=== PATIENT | male | born 1970 | race Caucasian/White ===

== ENCOUNTER 2016-11-02 19:21 | Inpatient (IN) | payer OTHER ==
--- NOTE | ~2016-11-02 | CO ---
Unit #: [id number] #: [id number] Patient: NIKKI UMAÑA [id number] [address] [address] [id number] I MR#: [id number] NAME: NIKKI UMAÑA. ROOM: 225 Age: 46 Sex: M Admission Date: 11/02/2016 : 1970 Attending Physician: Irene Cruz M.D. Primary Care Physician: No Primary Care Physician Consultation Date: 11/03/2016 CONSULTATION REPORT HISTORY AND EXAM Mr. Umaña is a 46-year-old gentleman who fell and hit his right barboza anteriorly on his truck bed causing an open wound. He since has developed worsening cellulitis and pain and reports purulent drainage. On admission in the emergency room, he was noted to have a necrotic eschar over the center and fluctuance. It is exquisitely tender. PAST MEDICAL HISTORY 1. Hypertension. 2. COPD. 3. Ruptured appendicitis with peritonitis requiring exploratory laparotomy. 4. Previous hernia repair. 5. Scar revision. ALLERGIES No allergy to medication. MEDICATIONS Not currently on any medications. FAMILY HISTORY Atherosclerotic coronary artery disease. SOCIAL HISTORY The patient lives with family. He is a pack a day smoker, social alcohol drinker. REVIEW OF SYSTEMS Otherwise noncontributory. CURRENT EXAMINATION GENERAL: He is awake, alert and oriented. VITAL SIGNS: Temperature is 99.7, pulse 79, respirations 14, blood pressure 125/64. HEENT: Unremarkable. CARDIAC: Regular rhythm. LUNGS: Clear. ABDOMEN: Soft. EXTREMITIES: No edema. On the right lower extremity anteriorly he has about a 6 cm necrotic eschar with surrounding fluctuant cellulitis. NEUROLOGICAL: Grossly intact. DIAGNOSTIC STUDIES Unit #: [id number] #: [id number] Patient: NIKKI UMAÑA LABORATORY: Basic metabolic panel shows a potassium of 3.3, otherwise unremarkable. Liver chemistries are normal. INR is 1.1. White count 11,900, hemoglobin 13.1, platelets 151,000. IMAGING: X-ray of the right lower extremity shows no fracture or bony destruction. ASSESSMENT AND PLAN Traumatic wound, right lower extremity, with central eschar and nonviable tissue associated with cellulitis and reports of purulent drainage. This will need operative debridement. I have discussed this with the patient. He understands and agrees to proceed. Dictated by... Maxime Covington/himanshu TD: 11/03/2016 07:19 JOB #: [id number] CONSULTATION REPORT Page 1 of 1 X Terrell Mosley MD X CONSULTATION REPORT
--- NOTE | ~2016-11-02 | HP ---
Unit #: [id number] #: [id number] Patient: NIKKI UMAÑA [id number] [address] [address] [id number] I MR#: [id number] NAME: NIKKI UMAÑA. ROOM: 34973 Age: 46 Sex: M Admission Date: 11/02/2016 : 1970 Attending Physician: Irene Cruz M.D. Primary Care Physician: No Primary Care Physician HISTORY AND PHYSICAL CHIEF COMPLAINT Distal right leg wound with cellulitis. HISTORY This dipak 46-year-old male with COPD, is admitted for cellulitis of the right leg. Five days ago the patient fell and gashed his leg in his truck. Two days ago he developed redness, pain around the right distal leg wound with fevers. He presents to this emergency department with cellulitis over a wound, right leg. There is some purulence noted and some necrotic tissue also present. No crepitus. In the ER he was given morphine and vancomycin along with a liter of saline. He believes that he had a tetanus booster over the past year. PAST MEDICAL HISTORY 1. Hypertension 2. COPD. 3. Ruptured appendix and peritonitis requiring exploratory lap and extensive surgery including partial bowel resection. 4. Hernia repair. 5. Scar revision. ALLERGIES None. HOME MEDICATIONS None. FAMILY HISTORY CAD. SOCIAL HISTORY The patient is living with his grandmother. He smokes one pack per day of tobacco, drinks occasional alcohol. 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 REVIEW OF SYSTEMS Review of systems is notable for COPD, tobacco use, right leg wound with pain, swelling, redness, and low-grade fevers, abovementioned surgeries. All other systems were reviewed and are otherwise negative. PHYSICAL EXAMINATION Unit #: [id number] #: [id number] Patient: NIKKI UMAÑA GENERAL: Dipak 46-year-old male currently in no acute distress. VITAL SIGNS: Temperature 99.8. Pulse 112. Respirations 16. Blood pressure 111/61. O2 saturation 100% on room air. HEENT: Eyes PERRLA. Extraocular muscles are intact. Pharynx is benign. NECK: Supple, without adenopathy or thyromegaly. CHEST: Clear. CARDIAC: Normal S1 and S2, without S3, S4 or murmur. ABDOMEN: Bowel sounds are present. No hepatosplenomegaly, tenderness or masses. Well-healed scar is noted. EXTREMITIES: Notable for a large area of cellulitis over the right lateral barboza with a wound which has some purulence along with necrotic tissue. There is no crepitus present. Pedal pulses are present. NEUROLOGIC EXAM: Patient is awake, alert, oriented. Cranial nerves are intact. Equal strength throughout. DIAGNOSTIC STUDIES ADMISSION LABORATORY: Hematocrit is 42, white blood count is 12.6, normal platelet count. Coags normal. SMA-12: Glucose 122, sodium 132, potassium 3.1. Lactic acid normal. ASSESSMENT 1. Right distal leg wound with cellulitis. There is also some purulence and necrotic tissue. 2. Chronic obstructive pulmonary disease with ongoing tobacco abuse. 3. Hypokalemia. PLANS 1. Vancomycin and Zosyn pending a culture of the wound. Will ask the surgeons to see in consultation for possible debridement if necessary. 2. Bactroban ointment and dressing changes. 3. DVT prophylaxis. 4. Replace potassium, check magnesium. 5. NicoDerm patch. Dictated by Irene Cruz M.D. AML/cf TD: 11/02/2016 21:58 JOB #: [id number] HISTORY AND PHYSICAL Page 1 of 1 X Irene Cruz MD HISTORY AND PHYSICAL
--- NOTE | ~2016-11-02 | OR ---
Unit #: [id number] #: [id number] Patient: NIKKI UMAÑA [id number] [address] [place], [place] [address] [id number] Ulices MR#: [id number] NAME: NIKKI UMAÑA. ROOM: 225 Date of Procedure: 11/03/2016 Admission Date: 11/02/2016 Surgeon: Terrell Mosley M.D. : 1970 Attending Physician: Kya Peace M.D. OPERATIVE REPORT PREOPERATIVE DIAGNOSES Infected traumatic wound, right lower extremity with palpable fluctuance and central necrosis. POSTOPERATIVE DIAGNOSES Infected traumatic wound, right lower extremity with palpable fluctuance and central necrosis. PROCEDURE PERFORMED Sharp incision, drainage, and debridement of skin and subcutaneous tissue down to the level of the muscular fascia 6 x 4 cm total area. Aerobic and anaerobic cultures taken from gross purulent drainage. ANESTHESIA General endotracheal anesthesia. ESTIMATED BLOOD LOSS Less than 20 mL. INDICATIONS FOR PROCEDURE A 46-year-old gentleman, who was doing some work, slipped and slid down the hill. As he slid down a Hill, he raised his right leg and hit the underside of his pickup truck. He developed a wound and over the next several days became erythematous, exquisitely tender, and fluctuant. The central portion had necrotic eschar. DESCRIPTION OF PROCEDURE The patient had been admitted to the hospital and started on IV antibiotics. He was transported to the operating room, and after induction of general endotracheal anesthesia, right lower extremity was prepped and draped. The dark nonviable eschar was initially sharply debrided and as we got down into the depths of the wound, there was gross purulent drainage tracking underneath the skin. I used a hemostat to identify the extent of the abscess that was underneath the skin and then debrided the skin over the abscess cavity down to the muscular fascia. Gross fibrinous exudate was also debrided. Once all the nonviable infected and necrotic tissue were debrided, the total area of 6 x 4 cm was performed. I irrigated and obtained hemostasis. The wound was packed with dressing sponges soaked in Betadine. Dry sterile dressing was placed. An Jose De Jesus wrap was placed. Sponges and needle counts were correct x3. The patient tolerated the procedure well and transported to recovery in stable condition. Findings and postoperative instructions were Unit #: [id number] #: [id number] Patient: NIKKI MUAÑA discussed with his friend. Dictated by... Maxime Covington/garrick TD: 11/03/2016 22:29 JOB #: [id number] OPERATIVE REPORT Page 1 of 1 X Terrell Mosley MD PROCEDURE OPERATIVE NOTE
--- NOTE | ~2016-11-02 | CR253 ---
[facility] A Service [facility] RADIOLOGY TEXT RESULTS PATIENT: NIKKI UMAÑA LOCATION: [facility] 225 : [birth year] UNIT #: [id number] AGE: [address]: Kya Peace MD SEX: M ORDER DR: [id number] [address] [place] [id number] [facility]. [place], [place] [address] [id number] MR#: [id number] Acc #: [id number] NAME: NIKKI UMAÑA. : 1970 SEX: M STUDY DATE/TIME: 11/02/2016 21:10 UNIT: [facility] ROOM: [facility] STUDY DESCRIPTION: CR Tibia and Fibula 2 Views Rt Attending Physician: Irene Cruz M.D. Ordering Physician: Wilfredo Guerra M.D. Primary Care Physician: Primary Care Physician No MEDICAL IMAGING REPORT This report is preliminary unless electronic signature is present EXAM Right tibia and fibula, AP and lateral HISTORY Leg pain and redness and swelling and laceration after injury 5 days ago. FINDINGS AP and lateral views of the right tibia and fibula demonstrate normal bone alignment. Soft tissue swelling mid and proximal lower leg. No acute fracture. Well-marginated calcification in the anteromedial margin of the lateral compartment, abutting the lateral tibial spine measures close to 2 cm, and is likely an ossified loose body. IMPRESSION 1. No acute fracture or bone destruction. 2. Soft tissue swelling of the mid and proximal lower leg. 3. 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 Dictated by... Rayray Chun M.D. THIS IS AN ELECTRONICALLY VERIFIED REPORT Rayray Chun M.D. at 11/03/2016 3:15 PM DFMurray/hieu TD: 11/03/2016 00:55 JOB #: [id number] MEDICAL IMAGING REPORT [facility] A Service [facility] RADIOLOGY TEXT RESULTS PATIENT: NIKKI UMAÑA LOCATION: [facility] 225-01 : [birth year] UNIT #: [id number] AGE: [address]: Kya Peace MD SEX: M ORDER DR: Page 1 of 1 COPY
--- NOTE | ~2016-11-02 | DS ---
Unit #: [id number] #: [id number] Patient: NIKKI UMAÑA [id number] [address] [address] [id number] I MR#: [id number] NAME: NIKKI UMAÑA. ROOM: 225 Age: 46 Sex: M Admission Date: 11/02/2016 : 1970 Discharge Date: 11/04/2016 Attending Physician: Kya Peace M.D. Primary Care Physician: Primary Care Physician No DISCHARGE SUMMARY ADMISSION DIAGNOSES 1. Right distal leg wound with cellulitis. 2. Chronic obstructive pulmonary disease. 3. Tobacco abuse. 4. Hypokalemia resolved. 5. Chronic obstructive pulmonary disease, stable. CONSULTANTS Terrell Mosley MD, [facility]. PROCEDURE 11/03/16: Sharp incision, drainage and debridement of skin and subcutaneous tissue down to the level of the muscular fascia 6 x 4 cm total area, aerobic and anaerobic cultures taken from gross purulent drainage. Postoperative diagnosis infected traumatic wound right lower extremity with palpable fluctuance and central necrosis. DIAGNOSTIC STUDIES Most recent diagnostic studies: WBC 8.9, hemoglobin 12.3, hematocrit 36.6, platelet count was 56,000, hemoglobin A1c 5.3, sodium 136, potassium 3.9, chloride 104, CO2 26, glucose 111, BUN 8, creatinine 0.6, calcium 7.8, magnesium 2.0. Blood cultures, preliminary x2, no growth at 24 hours. Final blood cultures pending at this time. Wound culture, preliminary right leg Staph aureus 4+, Gram stain anaerobic right leg swab moderate gram positive cocci in pairs. Lactic acid 1.5, 1.5. INR 1.1. DIAGNOSTIC STUDIES IMAGING: Right tibia and fibula, AP and lateral. Impression: No acute fracture or bone destruction. Soft tissue swelling at the mid and proximal lower leg. Approximately length centimeter well-circumscribed ossification at the lateral compartment abutting the lateral tibial spine suggesting an ossified loose body measuring close to 2 cm. CONDITION Stable. DISPOSITION Home. Patient refused Home Health Services. DISCHARGE MEDICATIONS 1. Nicotine transdermal 21 mg transdermally daily. 2. Wet-to-dry dressings which will be confirmed prior to discharge home with Dr. Mosley. It is unclear at this time that the patient wishes for him to continue with Dakin's 1/4 strength topically b.i.d. versus Unit #: [id number] #: [id number] Patient: NIKKI UMAÑA normal saline wet-to-dry dressing changes b.i.d. 3. Garnavillo 7.5/325 mg tab, 1-2 tabs p.o. q.6 hours p.r.n. pain (prescription written by Dr. Arriaga). 4. Bactrim DS 1 tab p.o. t.i.d. x10 days (prescription written by Dr. Arriaga). DISCHARGE INSTRUCTIONS 1. Patient has been cleared for discharge home by Dr. Peace and is to call and schedule follow-up appointment with his primary care physician in 1 week. 2. Patient has been evaluated by Dr. Arriaga, and the patient is to call and schedule a follow-up appointment with Dr. Mosley in 2 weeks. 3. Dressing change instructions to be clarified prior to discharge as dictated under discharge medications above. 4. The patient is to have a BMP performed at his follow-up appointment in 1 week with his primary care physician. HOSPITAL COURSE The patient is a 46-year-old male who presented to [facility] emergency department on the date of admission with a 2-day history of redness and pain around a right distal leg wound and fevers. He was treated in the emergency department with morphine and IV vancomycin as well as a liter of normal saline. Per review of the history and physical report, the patient is noted to have received a tetanus booster within the past year. Patient was diagnosed with cellulitis of the right lower extremity. [facility] was consulted for further evaluation and management and possible I and D of the right leg wound. He was also noted to be hypokalemic and received potassium repletion at that time. Please refer to the history and physical report for complete details. The patient was initially evaluated by Dr. Terrell Mosley, [facility]. His assessment included a traumatic wound to the right lower extremity with central eschar and nonviable tissue. He was taken to the operating room on 11/03/16, where he underwent the above referenced procedure. He has remained on piperacillin tazobactam as well as vancomycin IV pending results of the wound culture from the right lower extremity which returned positive for 4+ Staph aureus. The patient is afebrile. Vital signs are stable. He is tolerating food and fluids well at this time. He will be discharged home this afternoon with his prescription for Bactrim DS and a prescription for pain medications, as well as dressing change instructions as dictated above. Dictated by... Pita Belcher A.P.R.N. for Maxime Albarado/bernardo TD: 11/05/2016 23:28 JOB #: [id number] Unit #: [id number] #: [id number] Patient: NIKKI UMAÑA DISCHARGE SUMMARY Page 1 of 1 X Pita Belcher APRN X DISCHARGE SUMMARY
[~2016-11-02 19:21] MED LIST: BACTRIM DS TABL1 TA1 PO; CIPRO PO; IBUPROFEN800 MG PO; LISINOPRIL5 MG PO
[2016-11-02 20:34] LABS: BASOPHIL# 0.1 X10e3 (0-0.3); BASOPHIL% 0.5 % (0-2.5); DIFF IND NO; EOSINOPHIL% 0.3 % (0.0-7.0); LYMPHOCYTE# 1.2 X10e3 (1.0-3.5); LYMPHOCYTE% 9.4 % (17.0-45.0); MEAN CELL VOLUME 91.9 FL (83-96); MEAN CORPUSCULAR HEMOGLOBIN 30.6 PG (28-34); MEAN CORPUSCULAR HGB CONC 33.3 g/dL (30-36); MEAN PLATELET VOLUME 8.2 FL (6.5-11.5); MONOCYTE# 0.8 X10e3 (0-1.0); MONOCYTE% 6.7 % (3.0-12.0); NEUTROPHIL# 10.5 X10e3 (1.5-7.1); NEUTROPHIL% 83.1 % (40-75); PLATELET COUNT 179 X10e3 (140-420); RED BLOOD COUNT 4.57 X10e (3.90-5.60); RED CELL DISTRIBUTION WIDTH 14.7 % (11.0-15.5); WHITE BLOOD COUNT 12.6 X10e3 (4.0-10.5)
[2016-11-02 20:44] LABS: POC - CKMB <1.0 ng/mL (0.0-7.9); POC - TROPONIN <0.05 ng/mL (<=0.05)
[2016-11-02 20:47] LABS: INR 1.1; PARTIAL THROMBOPLASTIN TIME 31.2 SECONDS (23.5-31.3); PROTHROMBIN TIME (PATIENT) 11.7 SECONDS (9.6-11.5)
[2016-11-02 20:56] LABS: ALBUMIN SERUM 3.8 g/dL (3.5-5.0); BILIRUBIN, DIRECT 0.2 mg/dL (0.0-0.2); BILIRUBIN,TOTAL 1.2 mg/dL (0.2-2.0); BUN/CREATININE RATIO 8.75; CALCIUM SERUM 8.6 mg/dL (8.4-10.2); CREATININE SERUM 0.8 mg/dL (0.6-1.4); GLOM FILT RATE Estimated 105.7 mL/min (>60); POTASSIUM 3.1 mmol/L (3.5-5.1); PROTEIN TOTAL SERUM 7.2 g/dL (6.0-8.3)
[2016-11-03] MEDS ORDERED: NO MEDICATIONS (00:22)
[2016-11-03 01:32] LABS: BASOPHIL# 0.1 X10e3 (0-0.3); BASOPHIL% 0.4 % (0-2.5); EOSINOPHIL# 0.1 X10e3 (0-0.7); EOSINOPHIL% 0.4 % (0.0-7.0); HEMATOCRIT 39.5 % (38.0-50.0); HEMOGLOBIN 13.1 gm/dL (13.0-16.0); LYMPHOCYTE# 1.5 X10e3 (1.0-3.5); LYMPHOCYTE% 12.3 % (17.0-45.0); MEAN CELL VOLUME 93.2 FL (83-96); MEAN CORPUSCULAR HEMOGLOBIN 30.8 PG (28-34); MEAN CORPUSCULAR HGB CONC 33.1 g/dL (30-36); MEAN PLATELET VOLUME 8.1 FL (6.5-11.5); MONOCYTE# 0.6 X10e3 (0-1.0); MONOCYTE% 4.7 % (3.0-12.0); NEUTROPHIL# 9.8 X10e3 (1.5-7.1); NEUTROPHIL% 82.2 % (40-75); PLATELET COUNT 151 X10e3 (140-420); RED BLOOD COUNT 4.24 X10e (3.90-5.60); RED CELL DISTRIBUTION WIDTH 14.5 % (11.0-15.5); WHITE BLOOD COUNT 11.9 X10e3 (4.0-10.5)
[2016-11-03 01:33] LABS: DIFF IND NO
[2016-11-03 02:27] LABS: GLOM FILT RATE Estimated 88.6 mL/min (>60); MAGNESIUM 1.9 mg/dL (1.6-3.0); POTASSIUM 3.3 mmol/L (3.5-5.1)
[2016-11-04 07:03] LABS: HEMATOCRIT 36.6 % (38.0-50.0); HEMOGLOBIN 12.3 gm/dL (13.0-16.0); MEAN CELL VOLUME 92.4 FL (83-96); MEAN CORPUSCULAR HEMOGLOBIN 31.1 PG (28-34); MEAN CORPUSCULAR HGB CONC 33.6 g/dL (30-36); MEAN PLATELET VOLUME 8.4 FL (6.5-11.5); RED BLOOD COUNT 3.96 X10e (3.90-5.60); RED CELL DISTRIBUTION WIDTH 14.6 % (11.0-15.5); WHITE BLOOD COUNT 8.9 X10e3 (4.0-10.5)
[2016-11-04 07:53] LABS: BUN/CREATININE RATIO 13.33; CALCIUM SERUM 7.8 mg/dL (8.4-10.2); CREATININE SERUM 0.6 mg/dL (0.6-1.4); GLOM FILT RATE Estimated 118.9 mL/min (>60); POTASSIUM 3.9 mmol/L (3.5-5.1)
[2016-11-04] MEDS ORDERED: BACTRIM DS TAB1 EACH PO (14:28)
[2016-11-04] MEDS ORDERED: SODIUM CHLORI1000 ML (14:29)
[2016-11-04] MEDS ORDERED: NORCO 7.5-3251 EACH PO (14:29)
[2016-11-04] MEDS ORDERED: NICOTINE PATCH1 EACH TD (14:30)
== END 2016-11-04 15:55 | disposition home or self-care (01) | DRG 571 ==
LOC: CED 19:21 → C2A 21:40 → CEDOF 21:40 → CED 21:45 → CEDOF 21:45 → C2A 23:29 → CEDOF 23:29 → C2A 11-03 07:50
PROVIDERS: Emergency Medicine; Internal Medicine; Nurse Practitioner; Specialist
PROC: 0JBN0ZZ Excision of Right Lower Leg Subcutaneous Tissue and Fascia, Open Approach (ICD-10-PCS; principal; 2016-11-03 16:30)
DX: L03.115 Cellulitis of right lower limb (principal); E87.1 Hypo-osmolality and hyponatremia; I10 Essential (primary) hypertension; B95.61 Methicillin susceptible Staphylococcus aureus infection as the cause of diseases classified elsewhere; J44.9 Chronic obstructive pulmonary disease, unspecified; S80.921A Unspecified superficial injury of right lower leg, initial encounter; W19.XXXA Unspecified fall, initial encounter; E87.6 Hypokalemia; F17.210 Nicotine dependence, cigarettes, uncomplicated; E83.51 Hypocalcemia; L29.9 Pruritus, unspecified
CPT/HCPCS: 36415; 73590; 80048; 80076; 80202; 82553; 83036; 83605; 83735; 84132; 84484; 85025; 85027; 85610; 85730; 87040; 87070; 87075; 87077; 87186; 87205; 94760; 96361; 96374; 99285; J1650; J2250; J2270; J2405; J2543; J3010; J3370